=== PATIENT | female | born 1970 | race Two or more races ===

== ENCOUNTER 2021-03-11 11:44 | Inpatient (IN) | payer BC, OTHER ==
[~2021-03-11] VITALS: Ht 162.6 cm; Wt 84.3 kg
[2021-03-11 12:20] LABS: Basophils # (auto) 0.1 10 ^3/uL (0-0.2); Basophils % (auto) 0.7 % (0.0-2.0); Eosinophils # (auto) 0 10 ^3/uL (0-0.8); Eosinophils % (auto) 0.1 % (0.0-7.0); Hematocrit 47.9 % (36.0-46.0); Hemoglobin 16.7 g/dL (12.2-16.2); Lymphocytes # (auto) 1.5 10 ^3/uL (0.4-5.4); Lymphocytes % (auto) 18.4 % (10.0-50.0); Mean Corpuscular Hemoglobin 31.7 pg (28.0-32.0); Mean Corpuscular Hgb Conc. 34.9 g/dL (32.0-36.0); Mean Corpuscular Volume 90.8 fL (80.0-100.0); Monocytes # (auto) 0.5 10 ^3/uL (0-1.3); Monocytes % (auto) 5.8 % (0.0-12.0); Neutrophils # (auto) 6.3 10 ^3/uL (1.6-8.6); Nucleated Red Blood Cells % 0.1 %; Red Blood Cells 5.28 10^6/uL (4.0-5.20); Red Cell Distribution Width 14.1 % (11.8-14.3); White Blood Cell 8.4 10^3/uL (4.4-10.8)
[2021-03-11] MEDS ORDERED: DexAMETHasone SOD PHOS 10MG/1ML VIAL INJ IV ONE (12:30)
[2021-03-11] MEDS ORDERED: AZITHROMYCIN 500MG/ 250ML 250 ML IV ONE (12:30)
[2021-03-11] MEDS ORDERED: cefTRIAXone 1GM/50ML D5W 50 ML IV ONE (12:30)
[2021-03-11 12:42] LABS: Calcium 8.5 mg/dL (8.5-10.1)
[2021-03-11] MEDS ORDERED: ONDANSETRON HCL 4 MG/2 ML VIAL ONE (12:49)
[2021-03-11 12:50] LABS: Albumin 3.7 g/dL (3.4-5.0); BUN/Creatinine Ratio 8.2; Bilirubin, Total 0.3 mg/dL (0.2-1.0); Magnesium 2.8 mg/dL (1.6-2.6); Total Protein 8.5 g/dL (6.4-8.2)
[2021-03-11] MEDS ORDERED: MORPHINE SULFATE INJECTION 2 MG/ML SYRG IV PRN (19:15)
[2021-03-11] MEDS ORDERED: NITROGLYCERIN 0.4 MG SL TAB SL PRN (19:15)
[2021-03-12] VITALS (7 sets, daily range): BP systolic 93–122; BP diastolic 62–75
[2021-03-12 07:41] LABS: Basophils # (auto) 0 10 ^3/uL (0-0.2); Basophils % (auto) 0.3 % (0.0-2.0); Eosinophils # (auto) 0 10 ^3/uL (0-0.8); Hematocrit 44.1 % (36.0-46.0); Hemoglobin 15.6 g/dL (12.2-16.2); Lymphocytes # (auto) 1.3 10 ^3/uL (0.4-5.4); Lymphocytes % (auto) 27.2 % (10.0-50.0); Mean Corpuscular Hemoglobin 31.5 pg (28.0-32.0); Mean Corpuscular Hgb Conc. 35.4 g/dL (32.0-36.0); Monocytes # (auto) 0.7 10 ^3/uL (0-1.3); Monocytes % (auto) 14.5 % (0.0-12.0); Neutrophils # (auto) 2.8 10 ^3/uL (1.6-8.6); Nucleated Red Blood Cells % 0.5 %; Red Blood Cells 4.96 10^6/uL (4.0-5.20); Red Cell Distribution Width 13.6 % (11.8-14.3); White Blood Cell 4.9 10^3/uL (4.4-10.8)
[2021-03-12 07:53] LABS: Calcium 8.4 mg/dL (8.5-10.1)
[2021-03-12 07:59] LABS: Albumin 3.5 g/dL (3.4-5.0); Bilirubin, Total 0.3 mg/dL (0.2-1.0); Total Protein 7.8 g/dL (6.4-8.2)
[2021-03-12] MEDS: AZITHROMYCIN 500MG/ 250ML 250 ML IV SCH (11:07)
[2021-03-12] MEDS: ZINC SULFATE 220mg CAP or TAB PO SCH (11:07)
[2021-03-12] MEDS: ASCORBIC ACID 1,000 MG TAB PO SCH (11:07)
[2021-03-12] MEDS: ENOXAPARIN SOD 40 MG/0.4 ML SYRINGE SC SCH (11:08)
[2021-03-12] MEDS: HYDROcodone-ACET 5/325MG TAB PO PRN (11:08)
[2021-03-12] MEDS: CHOLECALCIFEROL (VITD3) 2,000 UNIT CAP/TAB PO SCH (11:08)
[2021-03-12] MEDS ORDERED: DexAMETHasone SOD PHOS 10MG/1ML VIAL INJ IV ONE (12:45)
[2021-03-12] MEDS ORDERED: POTASSIUM CHL 20 Meq TABLET PO ONE (12:45)
[2021-03-12] MEDS ORDERED: ACETAMINOPHEN 500 MG TAB PO PRN (12:45)
[2021-03-12] MEDS ORDERED: REMDESIVIR PER PHARMACY 0 ML IV SCH (12:45)
[2021-03-12] MEDS ORDERED: FAMOTIDINE 20 MG TAB PO ONE (12:45)
[2021-03-12] MEDS ORDERED: REMDESIVIR 200 MG in NS 210ml LOADING DOSE ADULT IV ONE (15:00)
[2021-03-12 18:48] LABS: Urine Bacteria NONE SEEN /hpf (None Seen); Urine Blood TRACE /uL (Negative); Urine Specific Gravity 1.007 (1.001-1.035); Urine WBC <1 /hpf (0 - 5)
[2021-03-12] MEDS: ALBUTEROL SULF HFA 90MCG INH 200DOSE IN PRN (20:15)
[2021-03-13 05:00] VITALS: BP 121/67
[2021-03-13 07:22] LABS: Albumin 3.1 g/dL (3.4-5.0); Calcium 8.7 mg/dL (8.5-10.1); Potassium 3.4 mmol/L (3.5-5.1)
[2021-03-13 07:24] LABS: BUN/Creatinine Ratio 34.4
[2021-03-13 07:31] LABS: Bilirubin, Total 0.2 mg/dL (0.2-1.0); Total Protein 7.2 g/dL (6.4-8.2)
[2021-03-13] MEDS: DexAMETHasone SOD PHOS 10MG/1ML VIAL INJ IV SCH (08:25)
[2021-03-13] MEDS: AZITHROMYCIN 500MG/ 250ML 250 ML IV SCH (08:26)
[2021-03-13] MEDS: ENOXAPARIN SOD 40 MG/0.4 ML SYRINGE SC SCH (08:26)
[2021-03-13] MEDS: ASCORBIC ACID 1,000 MG TAB PO SCH (08:26)
[2021-03-13] MEDS: ZINC SULFATE 220mg CAP or TAB PO SCH (08:26)
[2021-03-13] MEDS: CHOLECALCIFEROL (VITD3) 2,000 UNIT CAP/TAB PO SCH (08:26)
[2021-03-13] MEDS: FAMOTIDINE 20 MG TAB PO SCH (08:26)
[2021-03-13 09:00] VITALS: BP 109/60
[2021-03-13] MEDS: ALBUTEROL SULF HFA 90MCG INH 200DOSE IN PRN ×2 (09:36→19:16)
[2021-03-13 13:00] VITALS: BP 101/64
[2021-03-13] MEDS: REMDESIVIR 100mg 100 MG in SODIUM CHL 0.9% 230 ML IV SCH (13:59)
[2021-03-13 17:00] VITALS: BP 103/68
[2021-03-13] MEDS ORDERED: POTASSIUM EFFERVESENT TAB 25 MEQ PO ONE (21:15)
[2021-03-13 22:00] VITALS: BP 147/75
[2021-03-14 05:00] VITALS: BP 123/71
[2021-03-14 06:18] LABS: Potassium 3.4 mmol/L (3.5-5.1)
[2021-03-14 06:25] LABS: Bilirubin, Total 0.3 mg/dL (0.2-1.0); Calcium 8.5 mg/dL (8.5-10.1); Total Protein 6.7 g/dL (6.4-8.2)
[2021-03-14] MEDS: ALBUTEROL SULF HFA 90MCG INH 200DOSE IN PRN ×2 (07:32→19:41)
[2021-03-14 09:00] VITALS: BP 153/84
[2021-03-14] MEDS ORDERED: POTASSIUM CHL 20 Meq TABLET PO ONE (12:00)
[2021-03-14] MEDS: DexAMETHasone SOD PHOS 10MG/1ML VIAL INJ IV SCH (12:22)
[2021-03-14] MEDS: ZINC SULFATE 220mg CAP or TAB PO SCH (12:23)
[2021-03-14] MEDS: AZITHROMYCIN 500MG/ 250ML 250 ML IV SCH (12:23)
[2021-03-14] MEDS: FAMOTIDINE 20 MG TAB PO SCH (12:23)
[2021-03-14] MEDS: ENOXAPARIN SOD 40 MG/0.4 ML SYRINGE SC SCH (12:24)
[2021-03-14] MEDS: CHOLECALCIFEROL (VITD3) 2,000 UNIT CAP/TAB PO SCH (12:24)
[2021-03-14] MEDS: ASCORBIC ACID 1,000 MG TAB PO SCH (12:24)
[2021-03-14 17:00] VITALS: BP 113/72
[2021-03-14] MEDS: REMDESIVIR 100mg 100 MG in SODIUM CHL 0.9% 230 ML IV SCH (17:00)
[2021-03-14 22:00] VITALS: BP 120/63
[2021-03-15 05:00] VITALS: BP 134/76
[2021-03-15] MEDS: ALBUTEROL SULF HFA 90MCG INH 200DOSE IN PRN ×2 (06:06→22:27)
[2021-03-15 08:27] LABS: Potassium 4.1 mmol/L (3.5-5.1)
[2021-03-15 08:37] LABS: BUN/Creatinine Ratio 28.6; Bilirubin, Total 0.2 mg/dL (0.2-1.0); Calcium 8.6 mg/dL (8.5-10.1); Total Protein 6.8 g/dL (6.4-8.2)
[2021-03-15 09:00] VITALS: BP 152/68
[2021-03-15] MEDS: ASCORBIC ACID 1,000 MG TAB PO SCH (10:15)
[2021-03-15] MEDS: ENOXAPARIN SOD 40 MG/0.4 ML SYRINGE SC SCH (10:15)
[2021-03-15] MEDS: FAMOTIDINE 20 MG TAB PO SCH (10:15)
[2021-03-15] MEDS: AZITHROMYCIN 500MG/ 250ML 250 ML IV SCH (10:15)
[2021-03-15] MEDS: DexAMETHasone SOD PHOS 10MG/1ML VIAL INJ IV SCH (10:15)
[2021-03-15] MEDS: CHOLECALCIFEROL (VITD3) 2,000 UNIT CAP/TAB PO SCH (10:16)
[2021-03-15] MEDS: ZINC SULFATE 220mg CAP or TAB PO SCH (10:16)
[2021-03-15 13:00] VITALS: BP 114/67
[2021-03-15] MEDS: REMDESIVIR 100mg 100 MG in SODIUM CHL 0.9% 230 ML IV SCH (14:00)
[2021-03-15 17:00] VITALS: BP 134/71
[2021-03-15] MEDS: HYDROcodone-ACET 5/325MG TAB PO PRN (20:12)
[2021-03-16 05:00] VITALS: BP 122/85
[2021-03-16 07:26] LABS: Albumin 2.7 g/dL (3.4-5.0); Potassium 3.5 mmol/L (3.5-5.1)
[2021-03-16 07:29] LABS: BUN/Creatinine Ratio 26.8; Bilirubin, Total 0.3 mg/dL (0.2-1.0); Total Protein 6.8 g/dL (6.4-8.2)
[2021-03-16] MEDS: ALBUTEROL SULF HFA 90MCG INH 200DOSE IN PRN (08:14)
[2021-03-16] MEDS: ENOXAPARIN SOD 40 MG/0.4 ML SYRINGE SC SCH (09:45)
[2021-03-16] MEDS: ZINC SULFATE 220mg CAP or TAB PO SCH (09:45)
[2021-03-16] MEDS: ASCORBIC ACID 1,000 MG TAB PO SCH (09:45)
[2021-03-16] MEDS: AZITHROMYCIN 500MG/ 250ML 250 ML IV SCH (09:45)
[2021-03-16] MEDS: CHOLECALCIFEROL (VITD3) 2,000 UNIT CAP/TAB PO SCH (09:46)
[2021-03-16] MEDS: FAMOTIDINE 20 MG TAB PO SCH (09:46)
[2021-03-16] MEDS: HYDROcodone-ACET 5/325MG TAB PO PRN (09:52)
[2021-03-16] MEDS ORDERED: DexAMETHasone SOD PHOS 4 MG/1ML SDV INJ IV SCH (10:00)
[2021-03-16 10:29] VITALS: BP 120/63
[2021-03-16] MEDS ORDERED: DEX4T PO (12:57)
[2021-03-16] MEDS ORDERED: FAMO20TA10 PO (12:57)
[2021-03-16] MEDS ORDERED: CHOL500021 OR (12:57)
[2021-03-16] MEDS ORDERED: ASPI1TAB20 PO (12:57)
[2021-03-16] MEDS ORDERED: ZINC220C8 PO (12:57)
[2021-03-16 13:00] VITALS: BP 127/74
[2021-03-16] MEDS: REMDESIVIR 100mg 100 MG in SODIUM CHL 0.9% 230 ML IV SCH (15:23)
[2021-03-16 17:00] VITALS: BP 112/77
== END 2021-03-16 18:14 | disposition home or self-care (01) | DRG 871 ==
LOC: ER 11:44 → TELE 19:14 → TELE-EAST 23:28
PROVIDERS: ADMIT Internal Medicine; ATTEND Internal Medicine
PROC: XW033E5 Introduction of Remdesivir Anti-infective into Peripheral Vein, Percutaneous Approach, New Technology Group 5 (ICD-10-PCS; principal; 2021-03-12)
DX: A41.89 Other specified sepsis (principal); J96.01 Acute respiratory failure with hypoxia; J12.82 Pneumonia due to coronavirus disease 2019; U07.1 COVID-19; N17.0 Acute kidney failure with tubular necrosis; D89.839 Cytokine release syndrome, grade unspecified; E87.6 Hypokalemia; N18.9 Chronic kidney disease, unspecified; E66.9 Obesity, unspecified; I12.9 Hypertensive chronic kidney disease with stage 1 through stage 4 chronic kidney disease, or unspecified chronic kidney disease; R74.01 Elevation of levels of liver transaminase levels; R73.9 Hyperglycemia, unspecified; Z79.82 Long term (current) use of aspirin; Z23 Encounter for immunization; Z68.29 Body mass index [BMI] 29.0-29.9, adult
CPT/HCPCS: 36415; 71045; 71250; 80053; 81001; 82728; 83036; 83735; 84484; 85025; 86141; 87426; 93005; 94640; 96365; 96368; 96375; 99291; G0378; J0696; J1100; J2405